=== PATIENT | male | born 1990 | race Caucasian/White ===

== ENCOUNTER → 2020-04-02 | Outpatient (REF) | payer OTHER ==
[2020-04-02 09:48] LABS: SEMEN APPEARANCE OPAQUE (OPAQUE); SEMEN VISCOSITY LIQUID (LIQUID)
[2020-04-02 09:49] LABS: SEMEN pH 8.5 (7.0-8.0); SPERM CONCENTRATION 24.2 M/ml (>=15.0); WBC CONCENTRATION >1 M/ml (<=1 M/ml)
== END ==
LOC: M LAB REF 09:26
PROVIDERS: ATTEND Nurse Practitioner
DX: Z31.41 Encounter for fertility testing (principal)

== ENCOUNTER → 2021-03-26 | Outpatient (CLI) | payer OTHER | LOC: M PLAIMG 07:41 | PROVIDERS: ATTEND Orthopaedic Surgery Hand Surgery | DX: M79.644 Pain in right finger(s) (principal) ==

== ENCOUNTER → 2021-08-28 | Outpatient (CLI) | payer OTHER | LOC: M PLAIMG 14:14 | PROVIDERS: ATTEND Nurse Practitioner | DX: M79.605 Pain in left leg (principal) ==

== ENCOUNTER → 2021-09-29 | Outpatient (CLI) | payer OTHER | LOC: M RAD 06:45 | PROVIDERS: ATTEND Physician Assistant | DX: M79.645 Pain in left finger(s) (principal) ==

== ENCOUNTER → 2021-12-17 | Outpatient (CLI) | payer OTHER | LOC: M RAD 14:40 | PROVIDERS: ATTEND Occupational Therapist | DX: M79.644 Pain in right finger(s) (principal) ==

== ENCOUNTER 2022-01-21 10:27 | Emergency (ER) | payer OTHER ==
[~2022-01-21] VITALS: Ht 182.9 cm; Wt 83.9 kg
[2022-01-21 10:28] VITALS: BP 122/71
[2022-01-21] MEDS ORDERED: MODA200T15 (10:39)
[2022-01-21] MEDS ORDERED: NAPR-885 PO (11:57)
[2022-01-21 12:43] LABS: GC DNA AMPLIFICATION NEGATIVE (NEGATIVE)
== END 2022-01-21 12:10 | disposition home or self-care (01) ==
LOC: M ED 10:27
DX: N50.819 Testicular pain, unspecified (principal)